=== PATIENT | male | born 1965 | race Caucasian/White ===

== ENCOUNTER → 2025-02-18 | Outpatient (CLI) | payer MEDICAID, SELFPAY ==
--- NOTE | 2025-02-18 14:30 | XR_ITS ---
Examination: MRI cervical spine without intravenous contrast Date and time of exam: February 18, 2025 1452 hours INDICATIONS: Right-sided neck pain radiating to the hands 2 months Technique: Multiple axial and sagittal sections of the cervical spine to been obtained. T2 weighted sagittal sections, TR 3, 270, TE 117 T1-weighted sagittal sections, TR 500, TE 11 T1-weighted axial sections, TR 607, TE 12, axial sections TR 18, TE 27 and T2 weighted transverse sections, TR 3920, TE 122. Findings: Adequate alignment cervical vertebral bodies No cervical fracture Intact odontoid Moderate to advanced disc narrowing C5-C6 C6-C7 Diffuse cervical disc desiccation C2-C3 moderate bilateral neural foraminal stenosis C3-C4 advanced bilateral neural foraminal stenosis C4-C5 2 mm central subarticular osteophyte disc complex indenting the ventral margin cervical cord, advanced bilateral neural foraminal stenosis C5-C6 2 5 mm central left paracentral osteophyte disc complex, indenting the ventral left sided margin cervical cord with advanced bilateral neural foraminal stenosis C6-C7 2 mm central subarticular osteophyte disc complex, advanced left neural foraminal stenosis C7-T1 moderate bilateral neural foraminal stenosis IMPRESSION: Advanced degenerative disc disease C5-C6, C6-C7 Advanced bilateral neural foraminal stenosis C3-C4, C4-C5, C5-C6
== END | disposition home or self-care (01) ==
LOC: SMRI 13:52
PROVIDERS: PCP Family Medicine; Referring Provider Family Medicine; Visit Provider Family Medicine
DX: M50.322 Other cervical disc degeneration at C5-C6 level (principal); M48.02 Spinal stenosis, cervical region
CPT/HCPCS: 72141